=== PATIENT | female | born 1990 ===

== ENCOUNTER 2025-06-09 11:56 | Emergency (ER) | payer OTHER ==
[~2025-06-09] VITALS: Ht 177.8 cm; Wt 72.6 kg
[2025-06-09] MEDS ORDERED: NS 1,000 ML IV ONE (15:00)
[2025-06-09] MEDS ORDERED: NS 1,000 ML IV SCH (15:45)
[2025-06-09] MEDS ORDERED: DiphenhydrAMINE HCl 50 MG/ML 1ML Vial IV ONE (17:35)
== END 2025-06-09 19:19 | disposition home or self-care (01) ==
LOC: ER 11:56
DX: D64.9 Anemia, unspecified (principal); K51.90 Ulcerative colitis, unspecified, without complications; Z88.3 Allergy status to other anti-infective agents
CPT/HCPCS: 36430; 86850; 86900; 86901; 86923; 93005; 93010; 96374; 99283-25; J1200; J7030; P9016

== ENCOUNTER 2025-06-17 01:55 | Day surgery (SDC) | payer OTHER ==
[2025-06-16 13:15] LABS: BASOPHILS ABSOLUTE AUTO 0.09 K/mm3 (0.00-0.23); BASOPHILS PERCENT AUTO 1 % (0-2); EOSINOPHILS ABSOLUTE AUTO 0.17 K/mm3 (0.00-0.68); EOSINOPHILS PERCENT AUTO 2 % (0-6); Hematocrit 23.1 % (33.0-51.0); Hemoglobin 6.6 g/dL (11.5-16.0); IMMATURE GRAN ABSOLUTE AUTO 0.04 K/mm3 (0.00-0.10); IMMATURE GRAN PERCENT AUTO 1 % (0-1); LYMPHOCYTES ABSOLUTE AUTO 1.40 K/mm3 (0.84-5.20); LYMPHOCYTES PERCENT AUTO 16 % (21-46); MONOCYTES ABSOLUTE AUTO 0.66 K/mm3 (0.16-1.47); MONOCYTES PERCENT AUTO 7 % (4-13); Mean Corpuscular HGB Conc 28.6 g/dL (31.5-36.5); Mean Corpuscular Volume 71 fL (80-100); NEUTROPHILS ABSOLUTE AUTO 6.52 K/mm3 (1.96-9.15); NEUTROPHILS PERCENT AUTO 73 % (41-73); NRBC ABSOLUTE 0.00 K/mm3 (0.00-0.02); NRBC Auto 0.0 /100 WBC (0.0-0.2); Platelet Count 537 K/mm3 (150-400); RDW Coefficient Variation 24.5 % (11.7-14.2); RDW Standard Deviation 61.3 fL (35.1-46.3)
[2025-06-16 13:38] LABS: Ferritin, Serum 2.0 ng/mL (8-252); Total Iron Binding Capacity 390.0 ug/dL (250-450)
[2025-06-17] MEDS ORDERED: NS 250 ML IV SCH (07:00)
[2025-06-17 13:46] VITALS: BP 135/75
[2025-06-17] MEDS ORDERED: Effexor Xr150 MG PO (13:53)
[2025-06-17] MEDS ORDERED: Neurontin600 MG PO (13:54)
[2025-06-17 14:09] VITALS: BP 124/62
[2025-06-17 15:10] VITALS: BP 127/65
== END 2025-06-17 15:48 | disposition home or self-care (01) ==
LOC: ATC 01:55 → LAB FUT 06-09 14:55 → EDSTATUS 06-09 14:55
PROVIDERS: Registered Nurse Oncology
DX: K51.50 Left sided colitis without complications (principal); D64.9 Anemia, unspecified; F17.210 Nicotine dependence, cigarettes, uncomplicated; F17.290 Nicotine dependence, other tobacco product, uncomplicated; Z88.8 Allergy status to other drugs, medicaments and biological substances
CPT/HCPCS: 36415; 36430; 82728; 83540; 83550; 85025; 86850; 86900; 86901; 86923; J7050; P9016